=== PATIENT | male | born 1940 | race Caucasian/White ===

== ENCOUNTER 2016-07-01 18:22 | Inpatient (IN) | payer OTHER, MEDICARE ==
[~2016-07-01] VITALS: Ht 180.3 cm; Wt 83.5 kg
[~2016-07-01 18:22] MED LIST: NEXIUM 40MG40 MG PO
--- NOTE | 2016-07-01 18:26 | ED GI/GU/ABDOMINAL COMPLAINT ---
History of Present Illness General Chief Complaint: Abdominal Pain/Flank Pain Stated Complaint: BIBA FOR EPIGASTRIC PAIN Source: patient, EMS Exam Limitations: clinical condition Allergies Coded Allergies: MDX - DT (diphtheria toxoid - tetan (From TETANUS AND DIPHTHERIA TOXOIDS A...) ( Intermediate, [facility] 07/20/14) MDX - QIdu-VbxH-NOK (Pediarix) (From TETANUS AND DIPHTHERIA TOXOIDS A...) ( [facility], [facility] 07/20/14) MDX - DTap-IPV (Kinrix) (From TETANUS AND DIPHTHERIA TOXOIDS A...) (Intermediate , [facility] 07/20/14) MDX - DTap-IPV/Hib (Pentacel) (From TETANUS AND DIPHTHERIA TOXOIDS A...) ( [facility], [facility] 07/20/14) MDX - DTap/Hib (TriHIBit) (From TETANUS AND DIPHTHERIA TOXOIDS A...) ( [facility], [facility] 07/20/14) MDX - Diphtheria Toxoid, Adsorbed (From TETANUS AND DIPHTHERIA TOXOIDS A...) ( [facility], [facility] 07/20/14) MDX - Dtap (Daptacel, Infanrix, Tri (From TETANUS AND DIPHTHERIA TOXOIDS A...) ( [facility], [facility] 07/20/14) MDX - Td (Decavac) (From TETANUS AND DIPHTHERIA TOXOIDS A...) ([facility], [facility] 07/20/14) MDX - Tdap (Boostrix, Adacel) (From TETANUS AND DIPHTHERIA TOXOIDS A...) ( [facility], [facility] 07/20/14) MDX - Tetanus Toxoid (From TETANUS AND DIPHTHERIA TOXOIDS A...) ([facility], [facility] 07/20/14) Reconcile Medications Esomeprazole (Nexium) 40 MG CAPSULE. 1 CAP PO DAILY GERD (Reported) Triage Nurses Notes Reviewed? yes Onset: Abrupt Duration: day(s): (1) Timing: single episode today Quality/Severity: sharpness, severe Severity Numbers: 10 Location: epigastric Radiation: back, BILATERAL UPPER QUADRANTS Activities at Onset: none Prior Abdominal Problems: none No Modifying Factors: none HPI: 76 year old male presents via EMS from home for chief complaint of severe onset in epigastric abdominal pain radiating to both sides and to his back. Positive nausea but no vomiting. Last BM one hour prior to arrival. Pain began sudden in onset. No associated chest pain. Some shortness of breath. No fever or chills. No history of similar symptoms in the past. (CATARINO TOTH MD) Vital Signs & Intake/Output Vital Signs & Intake/Output Vital Signs Date Time Temp Pulse Resp B/P Pulse O2 O2 Flow FiO2 Ox Delivery Rate 07/03 0724 98.8 69 20 120/60 97 Room Air 07/02 2215 97.9 85 20 136/70 95 07/02 1529 98.3 66 18 130/60 95 ED Intake and Output 07/03 0000 07/02 1200 Intake Total 1590 900 Output Total Balance 1590 900 Intake, IV 1300 900 Intake, Oral 290 0 Number 0 Bowel Movements Patient 184 lb Weight Past History Travel History Traveled to [place] past 21 day No Medical History Any Pertinent Medical History? see below for history Gastrointestinal: GERD, HIATAL HERNIA Surgical History Surgical History: non-contributory Psychosocial History What is your primary language Montenegrin Family History Hx Contributory? No (CATARINO TOTH MD) Review of Systems Review of Systems Constitutional: Denies: chills, fever. EENTM: Reports: no symptoms. Respiratory: Denies: cough, short of breath. Cardiovascular: Denies: chest pain. GI: Reports: abdominal pain, nausea. Denies: vomiting. Genitourinary: Reports: no symptoms. Musculoskeletal: Reports: back pain. Skin: Reports: no symptoms. Neurological/Psychological: Reports: no symptoms. Hematologic/Endocrine: Denies: bleeding. Immunologic/Allergic: Denies: splenectomy. All Other Systems: Reviewed and Negative (CATARINO TOTH MD) Physical Exam Physical Exam General Appearance: well developed/nourished, alert, awake, anxious Head: atraumatic, normal appearance Eyes: Bilateral: normal appearance, PERRL, EOMI. Ears, Nose, Throat, Mouth: hearing grossly normal, moist mucous membrane Neck: normal inspection, supple, full range of motion Respiratory: normal breath sounds, chest non-tender, no respiratory distress Cardiovascular: regular rate/rhythm, edema Peripheral Pulses: 2+ radial (R), 2+ radial (L) Gastrointestinal: soft, tenderness (epigastric), NO REBOUND OR GUARDING, POSITIVE VOLUNTARY GUARDING Back: normal inspection, normal range of motion Extremities: normal range of motion Neurologic/Psych: no motor/sensory deficits, awake, alert, oriented x 3 Skin: intact, normal color, warm/dry Core Measures ACS in differential dx? No Severe Sepsis Present: No Septic Shock Present: No (CATARINO TOTH MD) Progress Differential Diagnosis: cholecystitis, gastritis, hepatitis, ischemic bowel, pancreatitis, PUD/GERD, SBO, DISSECTION, PERFORATION, AAA, AMI, HIATAL HERNIA Diagnostic Imaging: Viewed by Me: CT Scan. Discussed w/RAD: CT Scan. Initial ED EKG: NSR Rhythm Strip: normal sinus rhythm Hand-Off Endorsed To: MALINDA WISE MD Endorsed Time: 1901 Pending: CT, labs (CATARINO TOTH MD) Plan of Care: Orders Procedure Date/time Status HEPATIC FUNCTION PANEL 07/04 0600 Active CBC WITHOUT DIFFERENTIAL 07/04 0600 Active BASIC ELECTROLYTES PLUS BUN&CR 07/04 0600 Active Regular Diet 07/03 D Active PATHOLOGY SPECIMEN 07/03 1202 Complete HEPATIC FUNCTION PANEL 07/03 0620 Complete CBC WITHOUT DIFFERENTIAL 07/03 0620 Complete BASIC ELECTROLYTES PLUS BUN&CR 07/03 0620 Complete Current Medications Sig/Angelita Start time Last Medication Dose Stop Time Status Admin Pantoprazole Sodium 40 MG DAILY 07/04 1000 AC (Protonix) Ampicillin Sodium/ 3,000 MG Q6 07/03 1800 AC Sulbactam Sodium 07/04 0028 (Unasyn) Sodium Chloride 100 ML (Normal Saline 0.9%) Heparin Sodium 5,000 UNIT Q8 07/03 1400 AC (Porcine) Morphine Sulfate 2 MG Q3P PRN 07/03 1400 AC (Morphine) Ondansetron HCl 4 MG Q6P PRN 07/03 1400 AC (Zofran) Potassium Chloride 20 MEQ .Q24H 07/03 1400 AC (KCl 20MEQ in D5/ N.S. 1000 ML bag) Dextrose/Sodium 1,000 ML Chloride (D5-Normal Saline) Laboratory Tests 07/03/16 0640: Anion Gap 12, Estimated GFR > 60, BUN/Creatinine Ratio 16.0, Total Bilirubin 2.9 H, Direct Bilirubin 0.5 H, AST 21, ALT 30, Alkaline Phosphatase 37, Total Protein 6.4, Albumin 3.4 L, CBC w Diff NO MAN DIFF REQ, RBC 4.17 L, MCV 91.9, MCH 30.8, RDW 15.4 H, MPV 8.2, Gran % 73.8, Lymphocytes % 14.1 L, Monocytes % 9.6 H, Eosinophils % 2.2, Basophils % 0.3, Absolute Granulocytes 5.4, Absolute Lymphocytes 1.0 L, Absolute Monocytes 0.7 H, Absolute Eosinophils 0.2, Absolute Basophils 0, PUBS MCHC 33.5 07/03/16 0600: Total Bilirubin Cancelled, Direct Bilirubin Cancelled, AST Cancelled, ALT Cancelled, Alkaline Phosphatase Cancelled, Total Protein Cancelled, Albumin Cancelled, CBC w Diff Cancelled, WBC Cancelled, RBC Cancelled, Hgb Cancelled, Hct Cancelled, MCV Cancelled, MCH Cancelled, RDW Cancelled, Plt Count Cancelled, MPV Cancelled, PUBS MCHC Cancelled Radiology Impression: PATIENT: BINH HARVEY PRESENT AGE: 76 PATIENT ACCOUNT NO: [id number] : 42 LOCATION: [facility] ORDERING PHYSICIAN: CATARINO TOTH MD SERVICE DATE: 07/01/16 EXAM TYPE: CAT - CT ABD & PELVIS ANGIOGRAM; CTA CHEST-AORTIC DISSECTION EXAMINATION: CT ANGIOGRAM CHEST, ABDOMEN AND PELVIS CLINICAL INFORMATION: Chest and abdominal pain radiating to the back. COMPARISON: CT chest without contrast 09/12/2012. TECHNIQUE: Multiple axial images were obtained through the abdomen and pelvis following the administration of 95 mL of Optiray 320 intravenous contrast. Images were reviewed on a dedicated 3-D workstation. DLP: 1408 mGy-cm. FINDINGS: VASCULAR: Evaluation of the vasculature demonstrates scattered atherosclerosis of the thoracoabdominal aorta. The thoracoabdominal aorta is otherwise normal in caliber, without aneurysmal dilatation. There are no centrally displaced intraluminal flaps within the thoracoabdominal aorta to suggest aortic dissection. Calcified plaque is identified at the origin of the celiac artery as well as the superior mesenteric artery and inferior mesenteric artery. These vessels are otherwise normal in caliber and are patent and opacified by intravenous contrast. There is no evidence of aneurysm or dissection of the branching vessels of the abdominal aorta including the bilateral renal arteries and bilateral common iliac arteries. NONVASCULAR: CHEST: THYROID: Unremarkable. LUNGS/AIRWAYS: The lungs are well-expanded and clear without focal airspace consolidation. No suspicious pulmonary nodules or masses are identified. There is minimal dependent bibasilar atelectasis. The central airways are patent, without endobronchial obstructing lesions. HEART/VESSELS: The heart is normal in size, without pericardial effusion. There is bovine configuration of the aortic arch, characterized by common origin of the brachiocephalic and left common carotid arteries. The thoracic aorta and main pulmonary artery are normal in caliber. There is adequate contrast opacification of the pulmonary arterial vasculature, without evidence of pulmonary embolism to the level of the subsegmental pulmonary arteries. MEDIASTINUM/LYMPHATICS: There is no significant mediastinal, hilar or axillary adenopathy. PLEURA: No pleural effusions or pneumothoraces. CHEST WALL: Unremarkable. ABDOMEN AND PELVIS: Limited evaluation of the solid abdominal viscera secondary to arterial phase imaging. LIVER, GALLBLADDER, AND BILIARY TREE: The liver is normal in size, shape, and attenuation. No focal hepatic lesion or biliary ductal dilatation is present. There are several subcentimeter stones within the gallbladder lumen, without secondary signs of acute cholecystitis. PANCREAS: Fatty infiltration of the pancreas. No peripancreatic inflammatory changes or fluid collections. SPLEEN: Unremarkable. ADRENAL GLANDS: Unremarkable. KIDNEYS AND URETERS: The kidneys are normal in size and enhance homogeneously, without focal lesions. There is no appreciable nephrolithiasis or hydroureteronephrosis of either kidney or renal collecting system. No ureteral stones are identified. Nonspecific mild bilateral perinephric stranding. This could reflect senescent changes. BLADDER: Unremarkable. GASTROINTESTINAL TRACT: Evaluation of the gastrointestinal system is notable for a moderate hiatal hernia. Normal caliber of abdominal and pelvic bowel loops, without evidence of obstruction or ileus. No circumferential bowel wall thickening with surrounding inflammatory changes to suggest an underlying infectious or inflammatory enterocolitis. Nonvisualization of the appendix. No acute inflammatory changes within the right lower quadrant of the abdomen. Pancolonic diverticulosis, most extensive along the descending and rectosigmoid colon, without secondary signs of acute diverticulitis. No organizing intra- abdominal fluid collections or free intraperitoneal air. ABDOMINAL WALL: Small fat-containing bilateral inguinal hernias. LYMPH NODES: No significant abdominal or pelvic adenopathy. PELVIC VISCERA: Enlarged prostate gland measuring 4.8 x 5.6 cm in AP and transverse dimensions respectively. OSSEOUS STRUCTURES: No acute osseous abnormality. No destructive osseous lesions are identified. IMPRESSION: 1. Normal caliber of the thoracoabdominal aorta without evidence of aneurysmal dilatation. No centrally displaced flaps within the thoracoabdominal aorta or within the branching vessels of the thoracoabdominal aorta to suggest dissection. The branching vessels of the thoracoabdominal aorta are patent and opacified by intravenous contrast. 2. Moderate sized hiatal hernia. 3. Cholelithiasis without secondary signs of acute cholecystitis. 4. Pancolonic diverticulosis, most extensive along the rectosigmoid colon, without secondary signs of acute diverticulitis. DICTATED BY: JOLYNN DOMINGUEZ MD DATE/TIME DICTATED:07/01/161913 SALES FLOOR TEAM LEADER:DAVID DATE/TIME TRANSCRIBED:1913 CONFIDENTIAL, DO NOT COPY WITHOUT APPROPRIATE AUTHORIZATION. < Electronically signed in Other Vendor System> SIGNED BY: JOLYNN DOMINGUEZ MD 07/01/161931 Comments: 07/01/2016 7:36:06 PM patient signed out to me by Dr. Person at shift change management director. 07/01/2016 7:44:02 PM I have updated Binh and his family on test results. He appears uncomfortable again and has epigastric and right upper quadrant abdominal tenderness on exam. Additional morphine has been ordered. Given the presence of gallstones on his CAT scan I will consult the surgical service. 07/01/2016 8:17:28 PM patient's case discussed with Dr. Isaac. 07/01/2016 8:58:24 PM Binh has been evaluated by the surgical PA and his case discussed with Dr. Isaac. According to the PA, the patient's CAT scan was reviewed by Dr. Isaac. At this point the plan is reevaluation in one hour. The patient remains comfortable, he can be followed as an outpatient with repeat LFTs tomorrow. 07/01/2016 10:02:16 PM Binh's pain is beginning to return. I will contact the surgical PA. (FRANDY KLEIN,MALINDA Mathis) Departure Departure Condition: Stable Referrals: JUAN ANTONIO KLEIN,HENRY Chery (PCP/Family) Departure Forms: Customer Survey General Discharge Information (JANEY KLEIN,CATARINO) Departure Disposition: STILL A PATIENT Clinical Impression Primary Impression: Biliary colic Secondary Impressions: Intractable abdominal pain Referred to [facility] as new patient No Admission Note Spoke With: ROSIBEL KLEIN,DAVID N. Documentation of Exam: Documentation of any treatments & extenuating circumstances including Concerns Regarding Discharge (functional status, medication knowledge or non-compliance, living conditions, etc.) that warrant an admission rather than observation: She presents with signs and symptoms consistent with biliary colic. He has gallstones documented on a CAT scan consistent with biliary colic. The patient is requiring multiple doses of IV morphine for adequate pain control. I do not feel that he would be adequately controlled on oral pain relievers and outpatient management. I feel the pain he is experiencing would prevent him from compliance with outpatient treatment plan and he would likely return in severe pain. I feel he now requires hospitalization for management of his pain with IV narcotic pain relievers clear liquid diet and frequent abdominal examinations. Vital signs also be monitored. If the patient continues to experience severe pain or has alterations in his LFTs then surgical intervention and/or GI consultation should be considered. (FRANDY KLEIN,MALINDA Mathis) Critical Care Note Critical Care Note Critical Care Time: 30-74 min (JANEY KLEIN,CATARINO)
[2016-07-01 18:43] LABS: ABSOLUTE BASOPHIL COUNT 0.1 /CUMM (0.0-0.2); ABSOLUTE EOSINOPHIL COUNT 0.2 /CUMM (0.0-0.7); ABSOLUTE GRANULOCYTE CT 4.5 /CUMM (1.4-6.5); ABSOLUTE LYMPH COUNT 1.3 /CUMM (1.2-3.4); ABSOLUTE MONOCYTE COUNT 0.6 /CUMM (0.10-0.60); BASOPHIL % 0.9 % (0.0-2.0); EOSINOPHIL % 2.6 % (0-5); GRANULOCYTE % 68.1 % (42.2-75.2); HEMATOCRIT 41.6 % (42-52); MEAN CORPUSCULAR HGB 30.5 PG (27.0-31.0); MEAN CORPUSCULAR HGB CONC 33.5 G/DL (33.0-37.0); MEAN PLATELET VOLUME 8.7 FL (7.4-10.4); PLATELET COUNT 91 /CUMM (130-400); RBC DISTRIBUTION WIDTH 15.7 % (11.5-14.5); RED BLOOD CELL CT 4.57 /CUMM (4.70-6.10); WHITE BLOOD CELL COUNT 6.6 /CUMM (4.8-10.8)
[2016-07-01 18:52] LABS: PT 12.2 SEC (9.4-12.5); PTT 32 SEC (25-37)
--- NOTE | 2016-07-01 19:32 | CT SCAN REPORT ---
EXAMINATION: CT ANGIOGRAM CHEST, ABDOMEN AND PELVIS CLINICAL INFORMATION: Chest and abdominal pain radiating to the back. COMPARISON: CT chest without contrast 09/12/2012. TECHNIQUE: Multiple axial images were obtained through the abdomen and pelvis following the administration of 95 mL of Optiray 320 intravenous contrast. Images were reviewed on a dedicated 3-D workstation. DLP: 1408 mGy-cm. FINDINGS: VASCULAR: Evaluation of the vasculature demonstrates scattered atherosclerosis of the thoracoabdominal aorta. The thoracoabdominal aorta is otherwise normal in caliber, without aneurysmal dilatation. There are no centrally displaced intraluminal flaps within the thoracoabdominal aorta to suggest aortic dissection. Calcified plaque is identified at the origin of the celiac artery as well as the superior mesenteric artery and inferior mesenteric artery. These vessels are otherwise normal in caliber and are patent and opacified by intravenous contrast. There is no evidence of aneurysm or dissection of the branching vessels of the abdominal aorta including the bilateral renal arteries and bilateral common iliac arteries. NONVASCULAR: CHEST: THYROID: Unremarkable. LUNGS/AIRWAYS: The lungs are well-expanded and clear without focal airspace consolidation. No suspicious pulmonary nodules or masses are identified. There is minimal dependent bibasilar atelectasis. The central airways are patent, without endobronchial obstructing lesions. HEART/VESSELS: The heart is normal in size, without pericardial effusion. There is bovine configuration of the aortic arch, characterized by common origin of the brachiocephalic and left common carotid arteries. The thoracic aorta and main pulmonary artery are normal in caliber. There is adequate contrast opacification of the pulmonary arterial vasculature, without evidence of pulmonary embolism to the level of the subsegmental pulmonary arteries. MEDIASTINUM/LYMPHATICS: There is no significant mediastinal, hilar or axillary adenopathy. PLEURA: No pleural effusions or pneumothoraces. CHEST WALL: Unremarkable. ABDOMEN AND PELVIS: Limited evaluation of the solid abdominal viscera secondary to arterial phase imaging. LIVER, GALLBLADDER, AND BILIARY TREE: The liver is normal in size, shape, and attenuation. No focal hepatic lesion or biliary ductal dilatation is present. There are several subcentimeter stones within the gallbladder lumen, without secondary signs of acute cholecystitis. PANCREAS: Fatty infiltration of the pancreas. No peripancreatic inflammatory changes or fluid collections. SPLEEN: Unremarkable. ADRENAL GLANDS: Unremarkable. KIDNEYS AND URETERS: The kidneys are normal in size and enhance homogeneously, without focal lesions. There is no appreciable nephrolithiasis or hydroureteronephrosis of either kidney or renal collecting system. No ureteral stones are identified. Nonspecific mild bilateral perinephric stranding. This could reflect senescent changes. BLADDER: Unremarkable. GASTROINTESTINAL TRACT: Evaluation of the gastrointestinal system is notable for a moderate hiatal hernia. Normal caliber of abdominal and pelvic bowel loops, without evidence of obstruction or ileus. No circumferential bowel wall thickening with surrounding inflammatory changes to suggest an underlying infectious or inflammatory enterocolitis. Nonvisualization of the appendix. No acute inflammatory changes within the right lower quadrant of the abdomen. Pancolonic diverticulosis, most extensive along the descending and rectosigmoid colon, without secondary signs of acute diverticulitis. No organizing intra-abdominal fluid collections or free intraperitoneal air. ABDOMINAL WALL: Small fat-containing bilateral inguinal hernias. LYMPH NODES: No significant abdominal or pelvic adenopathy. PELVIC VISCERA: Enlarged prostate gland measuring 4.8 x 5.6 cm in AP and transverse dimensions respectively. OSSEOUS STRUCTURES: No acute osseous abnormality. No destructive osseous lesions are identified. IMPRESSION: 1. Normal caliber of the thoracoabdominal aorta without evidence of aneurysmal dilatation. No centrally displaced flaps within the thoracoabdominal aorta or within the branching vessels of the thoracoabdominal aorta to suggest dissection. The branching vessels of the thoracoabdominal aorta are patent and opacified by intravenous contrast. 2. Moderate sized hiatal hernia. 3. Cholelithiasis without secondary signs of acute cholecystitis. 4. Pancolonic diverticulosis, most extensive along the rectosigmoid colon, without secondary signs of acute diverticulitis.
--- NOTE | 2016-07-01 22:14 | Admission Core Measures ---
Admission Lab Results I reviewed the following labs: Laboratory Tests 07/01 07/01 2125 1832 Chemistry Sodium (137 - 145 mmol/L) 141 Potassium (3.5 - 5.1 mmol/L) 3.9 Chloride (98 - 107 mmol/L) 103 Carbon Dioxide (22 - 30 mmol/L) 24 Anion Gap (5 - 16) 13 BUN (9 - 20 mg/dL) 24 H Creatinine (0.7 - 1.2 mg/dL) 1.2 Estimated GFR (>60 ml/min) 59 L BUN/Creatinine Ratio (7 - 25 %) 20.0 Glucose (65 - 99 mg/dL) 112 H Lactic Acid (0.7 - 2.1 mmol/L) Cancelled 1.9 Calcium (8.4 - 10.2 mg/dL) 9.4 Total Bilirubin (0.2 - 1.3 mg/dL) 1.4 H AST (17 - 59 U/L) 33 ALT (21 - 72 U/L) 46 Alkaline Phosphatase (< 127 U/L) 44 Troponin I (<0.11 ng/ml) 0.02 Total Protein (6.3 - 8.2 g/dL) 7.4 Albumin (3.5 - 5.0 g/dL) 4.3 Globulin (1.9 - 4.2 gm/dL) 3.1 Albumin/Globulin Ratio (1.1 - 2.2 %) 1.4 Lipase (23 - 300 U/L) 89 Coagulation PT (9.4 - 12.5 SEC) 12.2 INR (0.90 - 1.17) 1.16 APTT (25 - 37 SEC) 32 Hematology CBC w Diff NO MAN DIFF REQ WBC (4.8 - 10.8 /CUMM) 6.6 RBC (4.70 - 6.10 /CUMM) 4.57 L Hgb (14.0 - 18.0 G/DL) 13.9 L Hct (42 - 52 %) 41.6 L MCV (80.0 - 94.0 FL) 91.0 MCH (27.0 - 31.0 PG) 30.5 RDW (11.5 - 14.5 %) 15.7 H Plt Count (130 - 400 /CUMM) 91 L MPV (7.4 - 10.4 FL) 8.7 Gran % (42.2 - 75.2 %) 68.1 Lymphocytes % (20.5 - 51.1 %) 19.9 L Monocytes % (1.7 - 9.3 %) 8.5 Eosinophils % (0 - 5 %) 2.6 Basophils % (0.0 - 2.0 %) 0.9 Absolute Granulocytes (1.4 - 6.5 /CUMM) 4.5 Absolute Lymphocytes (1.2 - 3.4 /CUMM) 1.3 Absolute Monocytes (0.10 - 0.60 /CUMM) 0.6 Absolute Eosinophils (0.0 - 0.7 /CUMM) 0.2 Absolute Basophils (0.0 - 0.2 /CUMM) 0.1 PUBS MCHC (33.0 - 37.0 G/DL) 33.5 Acute Coronary Syndrome Inclusion Criteria ACS Diagnosis No Inpatient Core Measures LDL Reminder: If No, please order W/I first 24hr of stay Congestive Heart Failure Inclusion Criteria CHF Diagnosis No Cerebrovascular accident Inclusion Criteria CVA/TIA Diagnosis No Inpatient Core Measures Bedside Swallow Eval Reminder: If BSE failed, place ST order Antithrombotic Reminder: Order Antithrombotic Medication by end of day 2 Antithrombotic Reminder: Document Reason Antithrombotic Not ordered by end of day 2 AFIB/Flutter Reminder: If Present, add to problem list AFIB/Flutter Reminder: Order Anticoag Medication for pts with AFIB/Flutter Atherosclerosis Reminder: If Present, add to problem list LDL Reminder: If No, please order W/I first 24hr of stay PT Order Reminder: If No, please order Venous thromboembolism Inpatient Core Measures VTE Risk Factors: Age > 40 VTE Prophylaxis Ordered [facility] prophylaxis d/t No contraindications No VTE Pharm Prophylaxis d/t No contraindications Inclusion Criteria - Per Current guidelines, there needs to be overlap - treatment for the first 5 days of Warfarin therapy. - Parenteral Anticoagulation (IV or SC) needs to be - given along with Warfarin therapy. VTE Diagnosis No VTE Type NONE VTE Confirmed by (Test) NONE Problem List As ranked by this Provider includes Assessment & Plan 1. Cholecystitis HOME MEDS Home Med List Esomeprazole (Nexium) 40 MG CAPSULE. 1 CAP PO DAILY GERD (Reported)
[2016-07-02 00:44] VITALS: BP 142/76
[2016-07-02 06:37] VITALS: BP 126/70
[2016-07-02 07:54] LABS: ABSOLUTE BASOPHIL COUNT 0 /CUMM (0.0-0.2); ABSOLUTE EOSINOPHIL COUNT 0.1 /CUMM (0.0-0.7); ABSOLUTE LYMPH COUNT 0.8 /CUMM (1.2-3.4); ABSOLUTE MONOCYTE COUNT 0.9 /CUMM (0.10-0.60); BASOPHIL % 0.2 % (0.0-2.0); EOSINOPHIL % 0.8 % (0-5); GRANULOCYTE % 79.9 % (42.2-75.2); HEMATOCRIT 41.3 % (42-52); MEAN CORPUSCULAR HGB 30.9 PG (27.0-31.0); MEAN PLATELET VOLUME 8.8 FL (7.4-10.4); RBC DISTRIBUTION WIDTH 15.7 % (11.5-14.5); RED BLOOD CELL CT 4.55 /CUMM (4.70-6.10); WHITE BLOOD CELL COUNT 8.8 /CUMM (4.8-10.8)
--- NOTE | 2016-07-02 08:41 | PN- General Surgery ---
Subjective Subjective: Patient reporting improvement in discomfort overnight, only required one dose of pain medication and feels pain did not return. Denies chest pain, shortness of breath and difficulty breathing. Denies nausea and vomitting. Denies belching or hiccupping. Denies bowel movement, acknowledges small amount of flatus. Is voiding spontaneously but notices slower stream. Objective Vital Signs and I&Os Vital Signs Date Time Temp Pulse Resp B/P Pulse O2 O2 Flow FiO2 Ox Delivery Rate 07/02 0637 98.5 81 20 126/70 98 Room Air 07/02 0044 98.0 61 20 142/76 98 Room Air 07/02 0015 95.9 55 20 159/77 99 Room Air 07/01 2159 97.0 57 18 176/84 99 Room Air 07/01 2009 96.7 57 20 158/72 100 Nasal 2.0L Cannula 07/01 1857 97 07/01 185 96.8 52 22 174/92 97 Room Air Intake & Output 07/02 1600 07/02 0800 07/02 0000 07/01 1600 07/01 0807/01 0000 Intake Total 900 0 Output Total Balance 900 0 Intake, IV 900 Intake, Oral 0 0 Patient 184 lb 184 lb Weight Physical Exam: General: Alert and oreinted x3, no acute distress Cardiac: RRR, s1s2 Pulmonary: Bilateral lung sounds clear to auscultation Abdomen: Soft, mild distension. Non-tender with deep palpation in all 4 quadrants. No guarding or rebound tenderness, +bs Extremities: Moves all extremities, distal sensations intact. DP pulses palp, bilateral calves soft and non-tender. Assessment/Plan Assessment/Plan This is a 76 year old male, hospital day 1 with cholelithiasis without evidence of acute cholecystitis -F/U am labs, assess lfts -Consider ERCP/MRCP if increasing lfts -Keep npo for now -Will d/w Dr. Isaac, consider d/c if asymptomatic Core Measures/Miscellaneous Venous Thromboembolism VTE Risk Factors: Age > 40 VTE Contraindications: No Contraindications VTE Prophylaxis Ordered Inpt Mech & Pharm VTE Diagnosis: No VTE Type: NONE VTE Confirmed by (Test): NONE Beta Jorge Is Beta Jorge a Home Med? No Antibiotics Is Patient on Antibiotics? Yes If Yes: infection
[2016-07-02 08:43] LABS: PLATELET COUNT 81 /CUMM (130-400)
--- NOTE | 2016-07-02 10:09 | ULTRASOUND REPORT ---
EXAMINATION: US ABDOMEN LIMITED CLINICAL INFORMATION: Abdominal pain. COMPARISON: None TECHNIQUE: Real-time imaging of the right upper quadrant abdominal viscera. FINDINGS: PANCREAS: Normal. LIVER: Normal. The liver demonstrates normal size, contour and echogenicity. No focal lesion or intrahepatic biliary duct dilatation. GALLBLADDER: There is a 1.8 cm calculus within the gallbladder lumen. There is no gallbladder wall thickening or pericholecystic fluid. COMMON BILE DUCT: Normal in caliber measuring 0.8 cm in diameter. RIGHT KIDNEY: Normal. No hydronephrosis. No renal calculi or focal parenchymal lesions. The kidney measures 12.1 cm in maximum dimension. FREE FLUID: None. IMPRESSION: Cholelithiasis without evidence of cholecystitis.
[2016-07-02 15:29] VITALS: BP 130/60
[2016-07-02 22:15] VITALS: BP 136/70
--- NOTE | 2016-07-02 22:45 | History & Physical Pre-Op ---
See Addendum General Information and HPI MD Statement: I have seen and personally examined CARMELO HARVEY and documented this H&P. The patient is a 76 year old M who presented with a patient stated chief complaint of []. History of Present Illness: CC: abdominal pain HPI: 76-year-old nondiabetic nonsmoker came to the ER yesterday afternoon with severe midepigastric pain constantly couldn't get comfortable it wasn't worse on one side or the other seemed to radiate both sides around to the back earlier that day he had a hall egg and cheese sandwich and then some Nixon leftovers. He did get nauseous once no vomiting no fevers no sweats no diarrhea no particular darkening of urine (ie iced tea) or lightening / loose stools ( vasquez), no FHx of gallbladder problems, but his daughter says she had very similar symptoms once. After some morphine he felt better and while in the ER we planned to let him go home but after the morphine wore off the pain returned. Otherwise no changes bowel habits, weight or appetite. I've reviewed the [facility]. No history of GERD, PUD, heart disease or issues with anesthesia. of note he is a recovering alcoholic hasn't had alcohol or cigarettes in over 30 years. 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 past surgical history no prior abdominal surgery, family history negative for diabetes or cancer. Allergies/Medications Allergies: Coded Allergies: MDX - DT (diphtheria toxoid - tetan (From TETANUS AND DIPHTHERIA TOXOIDS A...) ( Intermediate, HIVES 07/20/14) MDX - EKug-QuyK-PEP (Pediarix) (From TETANUS AND DIPHTHERIA TOXOIDS A...) ( Intermediate, HIVES 07/20/14) MDX - DTap-IPV (Kinrix) (From TETANUS AND DIPHTHERIA TOXOIDS A...) (Intermediate , HIV07/20/14) MDX - DTap-IPV/Hib (Pentacel) (From TETANUS AND DIPHTHERIA TOXOIDS A...) ( Intermediate, HIVES 07/20/14) MDX - DTap/Hib (TriHIBit) (From TETANUS AND DIPHTHERIA TOXOIDS A...) ( Intermediate, HIVES 07/20/14) MDX - Diphtheria Toxoid, Adsorbed (From TETANUS AND DIPHTHERIA TOXOIDS A...) ( Intermediate, [facility] 07/20/14) MDX - Dtap (Daptacel, Infanrix, Tri (From TETANUS AND DIPHTHERIA TOXOIDS A...) ( Intermediate, [facility] 07/20/14) MDX - Td (Decavac) (From TETANUS AND DIPHTHERIA TOXOIDS A...) (Intermediate, [facility] 07/20/14) MDX - Tdap (Boostrix, Adacel) (From TETANUS AND DIPHTHERIA TOXOIDS A...) ( Intermediate, [facility] 07/20/14) MDX - Tetanus Toxoid (From TETANUS AND DIPHTHERIA TOXOIDS A...) (Intermediate, [facility] 07/20/14) Home Med list Esomeprazole (Nexium) 40 MG CAPSULE. 1 CAP PO DAILY GERD (Reported) Past History Medical History Cardiovascular: hyperlipidemia Gastrointestinal: GERD, HIATAL HERNIA Blood Disorders: TRISOMIA 8 Cancer(s): leukemia History of MRSA: No History of VRE: No History of CDIFF: No Isolation History: Standard Pneumonia Vaccine: 07/02/16 Influenza Vaccine: 05/01/16 Surgical History Pertinent Surgical History: none Past Family/Social History Psychosocial History Where Do You Live? Home Services at Home None Smoking Status: Former Smoker ETOH Use: denies use Illicit Drug Use: denies illicit drug use Review of Systems Review of Systems: Constitutional: No fever, sweats or weight loss ENMT: No sore throat Cardiovascular: No chest pain, palpitations or leg swelling Respiratory: No shortness of breath, cough, or sputum or dyspnea on exertion GI: No GERD or bleeding per rectum : No dysuria or hematuria Musculoskeletal: No new muscle weakness, bone or joint pain Skin / Breast: No jaundice, rashes or itching Psychiatric: No history of drug or alcohol abuse no depression or anxiety Hematologic / lymphatic system: No problems with excessive bleeding, bruising, or blood clots Exam & Diagnostic Data Last 24 Hrs of Vital Signs/I&O I reviewed Vital Signs Date Time Temp Pulse Resp B/P Pulse O2 O2 Flow FiO2 Ox Delivery Rate 07/02 2215 97.9 85 20 136/70 95 07/02 1529 98.3 66 18 130/60 95 07/02 1030 98.5 07/02 0637 98.5 81 20 126/70 98 Room Air 07/02 0044 98.0 61 20 142/76 98 Room Air 07/02 0015 95.9 55 20 159/77 99 Room Air I reviewed Intake & Output 07/02 1600 07/02 0800 07/02 0000 Intake Total 850 900 0 Output Total Balance 850 900 0 Intake, IV 800 900 Intake, Oral 50 0 0 Number 0 Bowel Movements Patient 184 lb 184 lb Weight Physical Exam: Constitutional: pleasant, no acute distress, conversant Eyes: sclera anicteric ENMT: ears and nose atraumatic, moist mucous membranes, good dentition, no lip lesions Neck: Supple, trachea is midline, no cervical or supraclavicular adenopathy and no palpable thyromegaly Cardiovascular: S1, S2, no murmurs, no peripheral edema Respiratory: clear to auscultation with normal respiratory effort and no intercostal retractions GI: abdomen soft, nontender but he says that last night you couldn't touch him in the mid upper abdomen, nondistended, no palpable hepatosplenomegaly Extremities / lymphatics: symmetrically warm, free range of motion no peripheral edema, no cervical, supraclavicular, axillary, or inguinal adenopathy Musculoskeletal: Normal gait and station, no digital cyanosis, good muscle strength and tone no atrophy, motor grossly 5 out of 5 throughout Skin: no jaundice, no rashes warm, nondiaphoretic, no areas of erythema or induration Psychiatric: mood and affect are appropriate and alert and oriented to person place and time Last 24 Hrs of Labs/Guillermo: I reviewed Laboratory Tests 07/02/16 0635: Anion Gap 15, Estimated GFR > 60, BUN/Creatinine Ratio 24.0, Total Bilirubin 1.9 H, Direct Bilirubin 0.5 H, AST 27, ALT 43, Alkaline Phosphatase 40, Total Protein 7.0, Albumin 4.1, CBC w Diff NO MAN DIFF REQ, RBC 4.55 L, MCV 91.0, MCH 30.9, RDW 15.7 H, MPV 8.8, Gran % 79.9 H, Lymphocytes % 8.9 L, Monocytes % 10.2 H, Eosinophils % 0.8, Basophils % 0.2, Absolute Granulocytes 7.0 H, Absolute Lymphocytes 0.8 L, Absolute Monocytes 0.9 H, Absolute Eosinophils 0.1 , Absolute Basophils 0, PUBS MCHC 34.0 In the ER bilirubin was 1.4 Assessment/Plan Assessment/Plan: My impression is symptomatic gallstones. The story is typical. The current standard of care is removal of the gallbladder laparoscopically, preferably not emergently. Once they become symptomatic, gallstones can lead to complications such as cholecystitis, pancreatitis and cholangitis and rarely others, his story does have hints of this in that the pain initially was in the mid epigastrium and now it's completely gone overnight without recent analgesics. The LFTs are normal except for the bilirubin being mildly elevated and then increased. He probably does not have acute cholecystitis, but I'm concerned about choledocholithiasis. So the plan is since his plan is to give him clear liquids today keep him npo post midnight get LFTs in the morning if they go up then he needs an MR or ER-CP if they normalize, we'll proceed with laparoscopic cholecystectomy. I explained the nature and possibility of retained stones, and rarely, persistent postoperative diarrhea. I domenico a diagram illustrating how the stones cause problems and how the anatomy and inflammation can make the surgery more difficult, sometimes requiring an open procedure, and rarely to repair a bile duct injury leading to significant morbidity and even mortality. This in our practice is exceedingly rare, but other more common risks were also discussed such as infection, injury to other surrounding structures such as bowel and blood vessels. We also discussed the potential risks, benefits and alternatives to the procedure and surgery in general, issues that included but were not limited to, anesthetic risks hemorrhage requiring transfusion, the risk of transfusion itself, infection, heart attack, stroke, . As Ranked By This Provider Problem List: 1. Hyperbilirubinemia
[2016-07-03 07:05] LABS: ABSOLUTE BASOPHIL COUNT 0 /CUMM (0.0-0.2); ABSOLUTE EOSINOPHIL COUNT 0.2 /CUMM (0.0-0.7); ABSOLUTE GRANULOCYTE CT 5.4 /CUMM (1.4-6.5); ABSOLUTE MONOCYTE COUNT 0.7 /CUMM (0.10-0.60); BASOPHIL % 0.3 % (0.0-2.0); EOSINOPHIL % 2.2 % (0-5); GRANULOCYTE % 73.8 % (42.2-75.2); HEMATOCRIT 38.3 % (42-52); MEAN CORPUSCULAR HGB 30.8 PG (27.0-31.0); MEAN CORPUSCULAR HGB CONC 33.5 G/DL (33.0-37.0); MEAN CORPUSCULAR VOLUME 91.9 FL (80.0-94.0); MEAN PLATELET VOLUME 8.2 FL (7.4-10.4); RBC DISTRIBUTION WIDTH 15.4 % (11.5-14.5); RED BLOOD CELL CT 4.17 /CUMM (4.70-6.10); WHITE BLOOD CELL COUNT 7.3 /CUMM (4.8-10.8)
[2016-07-03 07:06] LABS: PLATELET COUNT 73 /CUMM (130-400)
--- NOTE | 2016-07-03 07:14 | PN- General Surgery ---
Subjective Subjective: NAEO. Patient without new c/o. No pain overnight and did not require pain meds. Tolerated clears until NPO after midnight. +flatus, no BM. Voiding spontaneously. OOB and ambulating. Denies CP/SOB. Objective Vital Signs and I&Os Vital Signs Date Time Temp Pulse Resp B/P Pulse O2 O2 Flow FiO2 Ox Delivery Rate 07/03 0724 98.8 69 20 120/60 97 Room Air 07/02 221 97.9 85 20 136/70 95 07/02 1529 98.3 66 18 130/60 95 07/02 1030 98.5 Intake & Output 07/03 0800 07/03 0000 07/02 1600 07/02 0800 07/02 0000 07/01 1600 Intake Total 740 850 900 0 Output Total 325 Balance -325 740 850 900 0 Intake, IV 500 800 900 Intake, Oral 240 50 0 0 Number 0 Bowel Movements Output, Urine 325 Patient 184 lb 184 lb Weight Physical Exam: General: NAD, comfortable, A&Ox3 Chest: CTAB, no wheezes, no rales. Heart S1S2 normal. Abdomen: soft, nontender, nondistended. +Bowel sounds x4 quadrants Ext: No calve swelling/TTP, neurovascularly intact bilateral lower extremities Current Medications: Current Medications Sig/Angelita Start time Last Medication Dose Route Stop Time Status Admin Ampicillin Sodium/ 3,000 MG Q6 07/01 2359 07/03 Sulbactam Sodium IV 0522 Sodium Chloride 100 ML Heparin Sodium 5,000 UNIT Q8 07/02 0600 AC 07/03 (Porcine) SC 0522 Morphine Sulfate 2 MG Q3P PRN 07/01 2230 AC 07/02 IV 0046 Ondansetron HCl 4 MG Q6P PRN 07/01 2215 IV Pantoprazole Sodium 40 MG DAILY 07/02 1000 AC 07/02 IV 1026 Patient Medication 1 ED .STK-MED ONE 07/02 1405 DC Teaching ED 07/02 1406 Pneumococcal 0.5 ML 1000 07/02 1000 DC 07/02 Polyvalent Vaccine IM 07/02 1001 1030 Potassium Chloride 20 MEQ .Q24H 07/01 2215 AC 07/02 Dextrose/Sodium 1,000 ML IV 1026 Chloride Results Last 48 Hours of Labs: Laboratory Tests 07/03 07/03 0640 0600 Chemistry Sodium (137 - 145 mmol/L) 138 Potassium (3.5 - 5.1 mmol/L) 4.0 Chloride (98 - 107 mmol/L) 102 Carbon Dioxide (22 - 30 mmol/L) 24 Anion Gap (5 - 16) 12 BUN (9 - 20 mg/dL) 16 Creatinine (0.7 - 1.2 mg/dL) 1.0 Estimated GFR (>60 ml/min) > 60 BUN/Creatinine Ratio (7 - 25 %) 16.0 Total Bilirubin (0.2 - 1.3 mg/dL) 2.9 H Cancelled Direct Bilirubin (< 0.4 mg/dL) 0.5 H Cancelled AST (17 - 59 U/L) 21 Cancelled ALT (21 - 72 U/L) 30 Cancelled Alkaline Phosphatase (< 127 U/L) 37 Cancelled Total Protein (6.3 - 8.2 g/dL) 6.4 Cancelled Albumin (3.5 - 5.0 g/dL) 3.4 L Cancelled Hematology CBC w Diff NO MAN DIFF REQ Cancelled WBC (4.8 - 10.8 /CUMM) 7.3 Cancelled RBC (4.70 - 6.10 /CUMM) 4.17 L Cancelled Hgb (14.0 - 18.0 G/DL) 12.8 L Cancelled Hct (42 - 52 %) 38.3 L Cancelled MCV (80.0 - 94.0 FL) 91.9 Cancelled MCH (27.0 - 31.0 PG) 30.8 Cancelled RDW (11.5 - 14.5 %) 15.4 H Cancelled Plt Count (130 - 400 /CUMM) 73 L Cancelled MPV (7.4 - 10.4 FL) 8.2 Cancelled Gran % (42.2 - 75.2 %) 73.8 Lymphocytes % (20.5 - 51.1 %) 14.1 L Monocytes % (1.7 - 9.3 %) 9.6 H Eosinophils % (0 - 5 %) 2.2 Basophils % (0.0 - 2.0 %) 0.3 Absolute Granulocytes (1.4 - 6.5 /CUMM) 5.4 Absolute Lymphocytes (1.2 - 3.4 /CUMM) 1.0 L Absolute Monocytes (0.10 - 0.60 /CUMM) 0.7 H Absolute Eosinophils (0.0 - 0.7 /CUMM) 0.2 Absolute Basophils (0.0 - 0.2 /CUMM) 0 PUBS MCHC (33.0 - 37.0 G/DL) 33.5 Cancelled 07/02 07/01 0667 9368 Chemistry Sodium (137 - 145 mmol/L) 138 Potassium (3.5 - 5.1 mmol/L) 4.3 Chloride (98 - 107 mmol/L) 100 Carbon Dioxide (22 - 30 mmol/L) 23 Anion Gap (5 - 16) 15 BUN (9 - 20 mg/dL) 24 H Creatinine (0.7 - 1.2 mg/dL) 1.0 Estimated GFR (>60 ml/min) > 60 BUN/Creatinine Ratio (7 - 25 %) 24.0 Lactic Acid Cancelled Total Bilirubin (0.2 - 1.3 mg/dL) 1.9 H Direct Bilirubin (< 0.4 mg/dL) 0.5 H AST (17 - 59 U/L) 27 ALT (21 - 72 U/L) 43 Alkaline Phosphatase (< 127 U/L) 40 Total Protein (6.3 - 8.2 g/dL) 7.0 Albumin (3.5 - 5.0 g/dL) 4.1 Hematology CBC w Diff NO MAN DIFF REQ WBC (4.8 - 10.8 /CUMM) 8.8 RBC (4.70 - 6.10 /CUMM) 4.55 L Hgb (14.0 - 18.0 G/DL) 14.0 Hct (42 - 52 %) 41.3 L MCV (80.0 - 94.0 FL) 91.0 MCH (27.0 - 31.0 PG) 30.9 RDW (11.5 - 14.5 %) 15.7 H Plt Count (130 - 400 /CUMM) 81 L MPV (7.4 - 10.4 FL) 8.8 Gran % (42.2 - 75.2 %) 79.9 H Lymphocytes % (20.5 - 51.1 %) 8.9 L Monocytes % (1.7 - 9.3 %) 10.2 H Eosinophils % (0 - 5 %) 0.8 Basophils % (0.0 - 2.0 %) 0.2 Absolute Granulocytes (1.4 - 6.5 /CUMM) 7.0 H Absolute Lymphocytes (1.2 - 3.4 /CUMM) 0.8 L Absolute Monocytes (0.10 - 0.60 /CUMM) 0.9 H Absolute Eosinophils (0.0 - 0.7 /CUMM) 0.1 Absolute Basophils (0.0 - 0.2 /CUMM) 0 PUBS MCHC (33.0 - 37.0 G/DL) 34.0 07/01 1832 Chemistry Sodium (137 - 145 mmol/L) 141 Potassium (3.5 - 5.1 mmol/L) 3.9 Chloride (98 - 107 mmol/L) 103 Carbon Dioxide (22 - 30 mmol/L) 24 Anion Gap (5 - 16) 13 BUN (9 - 20 mg/dL) 24 H Creatinine (0.7 - 1.2 mg/dL) 1.2 Estimated GFR (>60 ml/min) 59 L BUN/Creatinine Ratio (7 - 25 %) 20.0 Glucose (65 - 99 mg/dL) 112 H Lactic Acid (0.7 - 2.1 mmol/L) 1.9 Calcium (8.4 - 10.2 mg/dL) 9.4 Total Bilirubin (0.2 - 1.3 mg/dL) 1.4 H AST (17 - 59 U/L) 33 ALT (21 - 72 U/L) 46 Alkaline Phosphatase (< 127 U/L) 44 Troponin I (<0.11 ng/ml) 0.02 Total Protein (6.3 - 8.2 g/dL) 7.4 Albumin (3.5 - 5.0 g/dL) 4.3 Globulin (1.9 - 4.2 gm/dL) 3.1 Albumin/Globulin Ratio (1.1 - 2.2 %) 1.4 Lipase (23 - 300 U/L) 89 Coagulation PT (9.4 - 12.5 SEC) 12.2 INR (0.90 - 1.17) 1.16 APTT (25 - 37 SEC) 32 Hematology CBC w Diff NO MAN DIFF REQ WBC (4.8 - 10.8 /CUMM) 6.6 RBC (4.70 - 6.10 /CUMM) 4.57 L Hgb (14.0 - 18.0 G/DL) 13.9 L Hct (42 - 52 %) 41.6 L MCV (80.0 - 94.0 FL) 91.0 MCH (27.0 - 31.0 PG) 30.5 RDW (11.5 - 14.5 %) 15.7 H Plt Count (130 - 400 /CUMM) 91 L MPV (7.4 - 10.4 FL) 8.7 Gran % (42.2 - 75.2 %) 68.1 Lymphocytes % (20.5 - 51.1 %) 19.9 L Monocytes % (1.7 - 9.3 %) 8.5 Eosinophils % (0 - 5 %) 2.6 Basophils % (0.0 - 2.0 %) 0.9 Absolute Granulocytes (1.4 - 6.5 /CUMM) 4.5 Absolute Lymphocytes (1.2 - 3.4 /CUMM) 1.3 Absolute Monocytes (0.10 - 0.60 /CUMM) 0.6 Absolute Eosinophils (0.0 - 0.7 /CUMM) 0.2 Absolute Basophils (0.0 - 0.2 /CUMM) 0.1 PUBS MCHC (33.0 - 37.0 G/DL) 33.5 Assessment/Plan Assessment/Plan 76yo M with cholelithiasis, possible choledocolithiasis. Bilirubin with slight increase from yesterday, no other LFT's elevated. Asymptomatic at this point of time. NPO for anticipation of OR. - Pain control PRN - IVF - NPO - SC heparin and ALPS for DVT PPX - I/O's - OOB and ambulate - will discuss plan with attending for OR vs ERCP. MRI not available today for MRCP Core Measures/Miscellaneous Venous Thromboembolism VTE Risk Factors: Age > 40 VTE Contraindications: No Contraindications VTE Prophylaxis Ordered Inpt Mech & Pharm VTE Diagnosis: No VTE Type: NONE VTE Confirmed by (Test): NONE Beta Jorge Is Beta Jorge a Home Med? No Antibiotics Is Patient on Antibiotics? Yes If Yes: infection
[2016-07-03 07:24] VITALS: BP 120/60
--- NOTE | 2016-07-03 11:20 | Operative Report ---
See Addendum Operative/Inv Procedure Report Surgery Date: 07/03/16 Name of Procedure: Preperitoneal laparoscopic repair of left inguinal hernia Pre-Operative Diagnosis: Left inguinal hernia Post-Operative Diagnosis: Same, indirect Estimated Blood Loss: scant Surgeon/Client Support Representative: ROSIBEL KLEIN,DAVID PIERCE Anesthesia: general endotracheal tube Operative/Procedure Note Note: Patient was positioned supine on the table. After successful induction of general anesthesia the inguinal and surrounding areas were clipped prepped and draped in the usual sterile fashion. After injection of local anesthetic at the bottom of the umbilicus off the midlineto the left, a 1 1/2 cm curved incision was made with a 15 blade, then deepened through Aurora's fascia, sweeping off the rectus sheath. A horizontal 1-1/2 cm incision was made between the fibers, elevating these edges with 0 Vicryl stay sutures. Then retracting the muscle laterally, clearing off the posterior rectus sheath, this space is developed down the midline to the pubis sequentially, with an S retractor, a peanut dissector, then the balloon-camera device, inflating it 30-40 pumps while watching how it opens up the space, keeping the epigastrics up. The balloon is then replaced with a 10 mm Clifford trocar, inserted, shortened, and secured with the stay sutures, gas turned on to 12 not 15 mm. Then two 5 mm trochars are inserted in the midline just below the camera, spaced by approximately 3 cm. Using mostly blunt dissection with peanuts to define the anatomy, first Ephraim's ligament is swept off medially, checking the medial spaces, direct and femoral. There were no hernias there. Then briefly skipping over the area of the iliac fat pad, we developed the iliopubic tract out laterally to the iliac crest. Then we returned to the area of the fat pad where the hernia sac and the cord structures are adherent, coursing up into an attenuated deep ring. The cord structures form a triangle with the vas approaching medially and the main vessels approaching laterally, with the apex at the deep ring. There was some preperitoneal fat up inside in front that was dragged down and out, helping identify the distal lip of the hernia sac, which is then carefully peeled off the cord structures, especially the vas. The cord is also from the underlying iliac fat. Once the hernia sac is from the cord structures down to the base of this "triangle," a Parietex sided mesh with the suture, is marked and stuffed down the camera trocar, then unfurled in a systematic fashion , first with the smaller leaflet passing behind the cord structures, until the flap covers the epigastrics, covering the deep ring, then the larger leaflet is released from the suture, double-covering the smaller one, but also extends laterally out to the iliac crest, medially over Ephraim's ligament, and superiorly towards the camera. There is a third part of the mesh, that covers the iliac fat pad like a skirt. The mesh was adjusted back and forth so that the keyhole is centered around the cord, lays flat and the edges are not curling. A trial run of letting the gas escape a little bit to see how the mesh would lay as the peritoneum comes back down is done, then when we're satisfied, we let rest of the gas escape, pulling out the instruments and trochars. The fascia is closed with a [id number] 0 Vicryl suture, tying the stay sutures on top. Then we closed the 3 skin incisions with interrupted 4-0 Monocryl, 3 for the umbilical, one each for the smaller ones, followed by Mastisol, Steri-Strips and Band-Aids. Overall estimated blood loss was minimal, lap and sponge counts were correct, wound expectancy was clean, IV fluids crystalloid, complications none, patient tolerated the procedure well, did not significantly hoffman during extubation and was returned to the recovery room in satisfactory condition.
[2016-07-03] MEDS ORDERED: PERCOCET 5-3251 EACH PO (14:08)
--- NOTE | 2016-07-03 14:13 | Patient Discharge Instructions ---
Discharge Instructions General Discharge Information You were seen/treated for: Acute cholecystitis You had these procedures: 07/03/16 Laparoscopic cholecystectomy Watch for these problems: Redness, swelling, purulent drainage, fever, signs of infection. Excessive bleeding. Uncontrolled pain. Inability to tolerate diet. Chest pain. Shortness of breath. Do not soak the wound: Yes No bath, but you may shower: Yes Other wound care: Leave steri strips in place for 7-10 days. Diet Continue normal diet: Yes Activity Full Activity/No Limits: No Pounds, do NOT lift more than: 15 Other activity limits: No strenuous activity and/or exercise. Acute Coronary Syndrome Inclusion Criteria At DC or during hospital stay patient has or had the following: ACS DIAGNOSIS No Discharge Core Measures Meds if any: Prescribed or Continued at Discharge Meds if any: NOT Prescribed or Continued at Discharge Congestive Heart Failure Inclusion Criteria At DC or during hospital stay patient has or had the following: CHF DIAGNOSIS No Discharge Core Measures Meds if any: Prescribed or Continued at Discharge Meds if any: NOT Prescribed or Continued at Discharge Cerebrovascular accident Inclusion Criteria At DC or during hospital stay patient has or had the following: CVA/TIA Diagnosis No Discharge Core Measures Meds if any: Prescribed or Continued at Discharge Meds if any: NOT Prescribed or Continued at Discharge Venous thromboembolism Inclusion Criteria VTE Diagnosis No VTE Type NONE VTE Confirmed by (Test) NONE Discharge Core Measures - Per Current guidelines, there needs to be overlap - treatment for the first 5 days of Warfarin therapy. - If discharged on Warfarin prior to 5 days of - overlap therapy, the patient will need to be - assessed for post discharge needs including - *Post discharge parental anticoagulation - *Warfarin and/or parental anticoagulation education - *Follow up date to check INR post discharge At least 5 days overlap therapy as Inpatient No Meds if any: Prescribed or Continued at Discharge Note: Overlap Therapy is Warfarin and Anticoagulant Meds if any: NOT Prescribed or Continued at Discharge
--- NOTE | 2016-07-03 14:17 | Operative Report ---
Operative/Inv Procedure Report Surgery Date: 07/03/16 Name of Procedure: Laparoscopic cholecystectomy Pre-Operative Diagnosis: Choledocholithiasis, cholecystitis Post-Operative Diagnosis: Same, acute gangrenous Estimated Blood Loss: scant Surgeon/Pallet Rectifier: ROSIBEL KLEIN,DAVID PIERCE Anesthesia: general endotracheal tube Operative/Procedure Note Note: Patient was positioned supine. After successful induction of general anesthesia, the patient's abdomen was clipped, prepped and draped in the usual sterile fashion. Local anesthetic was injected at the top of the umbilicus and then a curved horizontal incision little over a centimeter was made there with a 15 blade and then deepened to the midline fascia which was incised vertically a little over a centimeter. Both sides were secured with 0 Vicryl stay sutures and then the thin peritoneal layer was entered, 10 mm Clfiford trocar inserted obliquely to the right, and the gas was turned on to 15 mm. After insufflation and repositioning to reverse Trendelenburg, 3 more dissecting 5 mm trochars were placed in the right subcostal area, first lateral, then mid-subcostal, then subxiphoid. The gallbladder was distended and gangrenous with spots, after we decompressed it with a large-bore needle,the fundus was grasped from the lateral port and retracted up over the edge of the liver and then we dissected out the area of the triangle of Calot while retracting the infundibulum caudally / laterally. It took time and dissection to actually get to the infundibulum there were adhesions both acute and chronic in this area including some between the omentum and the liver. First the cystic duct was identified, it was thick and tortuous, isolated at the neck, clipped 3 times, divided after the second clip and then in similar fashion the cystic artery was identified medially, dissected and divided. This anterior branch was small and flimsy there was a larger dominant posterior branch which we did Identify controlled with clips. Of note the common duct was involved in this inflamed area and was very noticeable during the dissection perhaps this patient had a Mirrizzi's as evidenced by the isolated elevated bilirubin. Then the gallbladder was from the liver bed using cautery then lowered into an Endobag and removed through the umbilical incision, after having to enlarge it by a few millimeters. The instruments and then the trochars were removed letting the gas escape. The fascial incision was closed with a figure 8 and an additional interrupted, 0- Vicryl then all 4 skin incisions were closed with interrupted subcuticular 4-0 Monocryl, followed by Mastisol Steri-Strips and Bandaids. Estimated blood loss was minimal, lap and sponge counts were correct, wound expectancy was clean- contaminated, IV fluids crystalloid, complications none, patient tolerated the procedure well and was returned to the recovery room in satisfactory condition.
[2016-07-03 16:00] VITALS: BP 130/68
--- NOTE | 2016-07-03 17:35 | PN- General Surgery ---
Subjective Subjective: Post Op Note s/p laparoscopic cholecystectomy Patient without c/o. States he has no pain at this time. Tolerating water without n/v. Has not been OOB. Denies CP/SOB. Objective Vital Signs and I&Os Vital Signs Date Time Temp Pulse Resp B/P Pulse O2 O2 Flow FiO2 Ox Delivery Rate 07/03 723 98.8 69 20 120/60 97 Room Air 07/02 2214 97.9 85 20 136/70 95 Intake & Output 07/03 1600 07/03 0807/03 0000 07/02 1600 07/02 0807/02 0000 Intake Total 120 400 740 850 900 0 Output Total 700 Balance 120 -300 740 850 900 0 Intake, IV 120 400 500 800 900 Intake, Oral 0 240 50 0 0 Number 0 Bowel Movements Output, Urine 700 Patient 184 lb 184 lb Weight Physical Exam: Gen: NAD, comfortable, A&Ox3 Chest: CTAB, RRR Abd: Soft, non-distended. Appropriately TTP. Incisions c/d/i. Ext: No calve TTP/Swelling. NV intact BLE. Current Medications: Current Medications Sig/Angelita Start time Last Medication Dose Route Stop Time Status Admin Ampicillin Sodium/ 3,000 MG Q6 07/03 1800 AC Sulbactam Sodium IV 07/04 0028 Sodium Chloride 100 ML Ampicillin Sodium/ 3,000 MG Q6 07/01 2359 DC 07/03 Sulbactam Sodium IV 0522 Sodium Chloride 100 ML Heparin Sodium 5,000 UNIT Q8 07/03 1400 AC (Porcine) SC Heparin Sodium 5,000 UNIT Q8 07/02 0600 DC 07/03 (Porcine) SC 0522 Morphine Sulfate 2 MG Q3P PRN 07/03 1400 AC IV Morphine Sulfate 2 MG Q3P PRN 07/01 2230 DC 07/02 IV 0046 Ondansetron HCl 4 MG Q6P PRN 07/03 1400 AC IV Ondansetron HCl 4 MG Q6P PRN 07/01 2215 DC IV Pantoprazole Sodium 40 MG DAILY 07/04 1000 AC IV Pantoprazole Sodium 40 MG DAILY 07/02 1000 DC 07/02 IV 1026 Potassium Chloride 20 MEQ .Q24H 07/03 1400 AC Dextrose/Sodium 1,000 ML IV Chloride Potassium Chloride 20 MEQ .Q24H 07/01 2215 DC 07/02 Dextrose/Sodium 1,000 ML IV 1026 Chloride Results Last 48 Hours of Labs: Laboratory Tests 07/03 07/03 0640 0600 Chemistry Sodium (137 - 145 mmol/L) 138 Potassium (3.5 - 5.1 mmol/L) 4.0 Chloride (98 - 107 mmol/L) 102 Carbon Dioxide (22 - 30 mmol/L) 24 Anion Gap (5 - 16) 12 BUN (9 - 20 mg/dL) 16 Creatinine (0.7 - 1.2 mg/dL) 1.0 Estimated GFR (>60 ml/min) > 60 BUN/Creatinine Ratio (7 - 25 %) 16.0 Total Bilirubin (0.2 - 1.3 mg/dL) 2.9 H Cancelled Direct Bilirubin (< 0.4 mg/dL) 0.5 H Cancelled AST (17 - 59 U/L) 21 Cancelled ALT (21 - 72 U/L) 30 Cancelled Alkaline Phosphatase (< 127 U/L) 37 Cancelled Total Protein (6.3 - 8.2 g/dL) 6.4 Cancelled Albumin (3.5 - 5.0 g/dL) 3.4 L Cancelled Hematology CBC w Diff NO MAN DIFF REQ Cancelled WBC (4.8 - 10.8 /CUMM) 7.3 Cancelled RBC (4.70 - 6.10 /CUMM) 4.17 L Cancelled Hgb (14.0 - 18.0 G/DL) 12.8 L Cancelled Hct (42 - 52 %) 38.3 L Cancelled MCV (80.0 - 94.0 FL) 91.9 Cancelled MCH (27.0 - 31.0 PG) 30.8 Cancelled RDW (11.5 - 14.5 %) 15.4 H Cancelled Plt Count (130 - 400 /CUMM) 73 L Cancelled MPV (7.4 - 10.4 FL) 8.2 Cancelled Gran % (42.2 - 75.2 %) 73.8 Lymphocytes % (20.5 - 51.1 %) 14.1 L Monocytes % (1.7 - 9.3 %) 9.6 H Eosinophils % (0 - 5 %) 2.2 Basophils % (0.0 - 2.0 %) 0.3 Absolute Granulocytes (1.4 - 6.5 /CUMM) 5.4 Absolute Lymphocytes (1.2 - 3.4 /CUMM) 1.0 L Absolute Monocytes (0.10 - 0.60 /CUMM) 0.7 H Absolute Eosinophils (0.0 - 0.7 /CUMM) 0.2 Absolute Basophils (0.0 - 0.2 /CUMM) 0 PUBS MCHC (33.0 - 37.0 G/DL) 33.5 Cancelled 07/02 07/01 0635 2125 Chemistry Sodium (137 - 145 mmol/L) 138 Potassium (3.5 - 5.1 mmol/L) 4.3 Chloride (98 - 107 mmol/L) 100 Carbon Dioxide (22 - 30 mmol/L) 23 Anion Gap (5 - 16) 15 BUN (9 - 20 mg/dL) 24 H Creatinine (0.7 - 1.2 mg/dL) 1.0 Estimated GFR (>60 ml/min) > 60 BUN/Creatinine Ratio (7 - 25 %) 24.0 Lactic Acid Cancelled Total Bilirubin (0.2 - 1.3 mg/dL) 1.9 H Direct Bilirubin (< 0.4 mg/dL) 0.5 H AST (17 - 59 U/L) 27 ALT (21 - 72 U/L) 43 Alkaline Phosphatase (< 127 U/L) 40 Total Protein (6.3 - 8.2 g/dL) 7.0 Albumin (3.5 - 5.0 g/dL) 4.1 Hematology CBC w Diff NO MAN DIFF REQ WBC (4.8 - 10.8 /CUMM) 8.8 RBC (4.70 - 6.10 /CUMM) 4.55 L Hgb (14.0 - 18.0 G/DL) 14.0 Hct (42 - 52 %) 41.3 L MCV (80.0 - 94.0 FL) 91.0 MCH (27.0 - 31.0 PG) 30.9 RDW (11.5 - 14.5 %) 15.7 H Plt Count (130 - 400 /CUMM) 81 L MPV (7.4 - 10.4 FL) 8.8 Gran % (42.2 - 75.2 %) 79.9 H Lymphocytes % (20.5 - 51.1 %) 8.9 L Monocytes % (1.7 - 9.3 %) 10.2 H Eosinophils % (0 - 5 %) 0.8 Basophils % (0.0 - 2.0 %) 0.2 Absolute Granulocytes (1.4 - 6.5 /CUMM) 7.0 H Absolute Lymphocytes (1.2 - 3.4 /CUMM) 0.8 L Absolute Monocytes (0.10 - 0.60 /CUMM) 0.9 H Absolute Eosinophils (0.0 - 0.7 /CUMM) 0.1 Absolute Basophils (0.0 - 0.2 /CUMM) 0 PUBS MCHC (33.0 - 37.0 G/DL) 34.0 07/01 1832 Chemistry Sodium (137 - 145 mmol/L) 141 Potassium (3.5 - 5.1 mmol/L) 3.9 Chloride (98 - 107 mmol/L) 103 Carbon Dioxide (22 - 30 mmol/L) 24 Anion Gap (5 - 16) 13 BUN (9 - 20 mg/dL) 24 H Creatinine (0.7 - 1.2 mg/dL) 1.2 Estimated GFR (>60 ml/min) 59 L BUN/Creatinine Ratio (7 - 25 %) 20.0 Glucose (65 - 99 mg/dL) 112 H Lactic Acid (0.7 - 2.1 mmol/L) 1.9 Calcium (8.4 - 10.2 mg/dL) 9.4 Total Bilirubin (0.2 - 1.3 mg/dL) 1.4 H AST (17 - 59 U/L) 33 ALT (21 - 72 U/L) 46 Alkaline Phosphatase (< 127 U/L) 44 Troponin I (<0.11 ng/ml) 0.02 Total Protein (6.3 - 8.2 g/dL) 7.4 Albumin (3.5 - 5.0 g/dL) 4.3 Globulin (1.9 - 4.2 gm/dL) 3.1 Albumin/Globulin Ratio (1.1 - 2.2 %) 1.4 Lipase (23 - 300 U/L) 89 Coagulation PT (9.4 - 12.5 SEC) 12.2 INR (0.90 - 1.17) 1.16 APTT (25 - 37 SEC) 32 Hematology CBC w Diff NO MAN DIFF REQ WBC (4.8 - 10.8 /CUMM) 6.6 RBC (4.70 - 6.10 /CUMM) 4.57 L Hgb (14.0 - 18.0 G/DL) 13.9 L Hct (42 - 52 %) 41.6 L MCV (80.0 - 94.0 FL) 91.0 MCH (27.0 - 31.0 PG) 30.5 RDW (11.5 - 14.5 %) 15.7 H Plt Count (130 - 400 /CUMM) 91 L MPV (7.4 - 10.4 FL) 8.7 Gran % (42.2 - 75.2 %) 68.1 Lymphocytes % (20.5 - 51.1 %) 19.9 L Monocytes % (1.7 - 9.3 %) 8.5 Eosinophils % (0 - 5 %) 2.6 Basophils % (0.0 - 2.0 %) 0.9 Absolute Granulocytes (1.4 - 6.5 /CUMM) 4.5 Absolute Lymphocytes (1.2 - 3.4 /CUMM) 1.3 Absolute Monocytes (0.10 - 0.60 /CUMM) 0.6 Absolute Eosinophils (0.0 - 0.7 /CUMM) 0.2 Absolute Basophils (0.0 - 0.2 /CUMM) 0.1 PUBS MCHC (33.0 - 37.0 G/DL) 33.5 Assessment/Plan Assessment/Plan 76yo M POD#0 s/p lap tristin. AVSS, patient stable. - Pain control - IVF - PRN zofran - I/O's - sc heparin and ALPS for DVT PPX - Unasyn x2 doses post op - Advance diet as tolerated - f/u a.m. labs - dc home tomorrow if LFTs stable and bilirubin improved Core Measures/Miscellaneous Venous Thromboembolism VTE Risk Factors: Age > 40 VTE Contraindications: No Contraindications VTE Prophylaxis Ordered Inpt Mech & Pharm VTE Diagnosis: No VTE Type: NONE VTE Confirmed by (Test): NONE Beta Jorge Is Beta Jorge a Home Med? No Antibiotics Is Patient on Antibiotics? Yes If Yes: infection
[2016-07-03 20:37] VITALS: BP 124/70
[2016-07-03 23:53] VITALS: BP 140/78
[2016-07-04 05:13] VITALS: BP 130/70
--- NOTE | 2016-07-04 07:15 | PN- General Surgery ---
Subjective Subjective: POD#1 S/P LAP GROVER, FOR CHOLEDOCOLITHIASIS/CHOLECYSTITIS MILD PAIN THIS AM CONTROLLED WITH PO PAIN MEDS DENIES CP, SOB, NO N+V WITH REGULAR DIET +FLATUS, NO BM Objective Vital Signs and I&Os Vital Signs Date Time Temp Pulse Resp B/P Pulse O2 O2 Flow FiO2 Ox Delivery Rate 07/04 05 98.6 72 20 130/70 96 Room Air 07/03 2353 98.5 79 20 140/78 96 Room Air 07/03 2037 98.8 77 20 124/70 96 Room Air 07/03 1600 98.6 72 20 130/68 97 Room Air 07/03 0724 98.8 69 20 120/60 97 Room Air Intake & Output 07/04 0800 07/04 0000 07/03 1600 07/03 0800 07/03 0000 07/02 1600 Intake Total 120 400 740 850 Output Total 1050 700 Balance -1050 120 -300 740 850 Intake, IV 120 400 500 800 Intake, Oral 0 240 50 Number 0 Bowel Movements Output, Urine 1050 700 Physical Exam: CV: RRR LUNGS: CLEAR ABD: SOFT, FLAT TENDER TO EPIGASTRIC PALP +BS WOUNDS CD/I EXT: WARM, DISTAL CMS INTACT Assessment/Plan Assessment/Plan SURGICAL STABLE PLAN F/U AM LABS OOB /AMBULATE IF AM LABS OK MAY D/C HOME THIS AFTERNOON Core Measures/Miscellaneous Venous Thromboembolism VTE Risk Factors: Age > 40 VTE Contraindications: No Contraindications VTE Prophylaxis Ordered Inpt Mech & Pharm VTE Diagnosis: No VTE Type: NONE VTE Confirmed by (Test): NONE Beta Jorge Is Beta Jorge a Home Med? No Antibiotics Is Patient on Antibiotics? Yes If Yes: infection
[2016-07-04 09:54] LABS: ABSOLUTE BASOPHIL COUNT 0 /CUMM (0.0-0.2); ABSOLUTE EOSINOPHIL COUNT 0.2 /CUMM (0.0-0.7); ABSOLUTE GRANULOCYTE CT 4.1 /CUMM (1.4-6.5); ABSOLUTE MONOCYTE COUNT 0.4 /CUMM (0.10-0.60); BASOPHIL % 0.5 % (0.0-2.0); EOSINOPHIL % 3.4 % (0-5); GRANULOCYTE % 71.2 % (42.2-75.2); HEMATOCRIT 36.2 % (42-52); MEAN CORPUSCULAR HGB 30.5 PG (27.0-31.0); MEAN CORPUSCULAR HGB CONC 33.3 G/DL (33.0-37.0); MEAN CORPUSCULAR VOLUME 91.5 FL (80.0-94.0); PLATELET COUNT 78 /CUMM (130-400); RBC DISTRIBUTION WIDTH 15.6 % (11.5-14.5); RED BLOOD CELL CT 3.96 /CUMM (4.70-6.10); WHITE BLOOD CELL COUNT 5.7 /CUMM (4.8-10.8)
--- NOTE | 2016-07-04 13:00 | Discharge Summary ---
Visit Information Visit Dates Admission Date: 07/01/16 Discharge Date: 07/04/16 Hospital Course Course Attending Physician: ROSIBEL KLEIN,DAVID Osorio Primary Care Physician: HENRY ROMANO MD Hospital Course: admitted with cholecystitis, possibly stone in duct, rechecked interval LFTs, bili up but no pain, to OR yesterday, gangrenous, better today, bili down, some discomfort like preop though, no nausea, will check EKG, if OK prob dc home. Allergies: Coded Allergies: MDX - DT (diphtheria toxoid - tetan (From TETANUS AND DIPHTHERIA TOXOIDS A...) ( Intermediate, [facility] 07/20/14) MDX - ETug-SbyO-DGC (Pediarix) (From TETANUS AND DIPHTHERIA TOXOIDS A...) ( [facility], [facility] 07/20/14) MDX - DTap-IPV (Kinrix) (From TETANUS AND DIPHTHERIA TOXOIDS A...) ([facility] , [facility] 07/20/14) MDX - DTap-IPV/Hib (Pentacel) (From TETANUS AND DIPHTHERIA TOXOIDS A...) ( [facility], [facility] 07/20/14) MDX - DTap/Hib (TriHIBit) (From TETANUS AND DIPHTHERIA TOXOIDS A...) ( [facility], [facility] 07/20/14) MDX - Diphtheria Toxoid, Adsorbed (From TETANUS AND DIPHTHERIA TOXOIDS A...) ( [facility], [facility] 07/20/14) MDX - Dtap (Daptacel, Infanrix, Tri (From TETANUS AND DIPHTHERIA TOXOIDS A...) ( [facility], [facility] 07/20/14) MDX - Td (Decavac) (From TETANUS AND DIPHTHERIA TOXOIDS A...) ([facility], [facility] 07/20/14) MDX - Tdap (Boostrix, Adacel) (From TETANUS AND DIPHTHERIA TOXOIDS A...) ( [facility], [facility] 07/20/14) MDX - Tetanus Toxoid (From TETANUS AND DIPHTHERIA TOXOIDS A...) ([facility], [facility] 07/20/14) Disposition Summary Disposition Principal Diagnosis: cholecystitis Additional Diagnosis: trisomy 8 Discharge Disposition: home or self care Discharge Instructions General Discharge Information Code Status: Full Code Patient's Diet: resume Patient's Activity: av strainig Follow-Up Instructions/Appts: next week unless recurent sympts and fever, ie retained stone Medications at Discharge Discharge Medications: Continue taking these medications: Esomeprazole (Nexium) 40 MG CAPSULE.DR 1 Capsule ORAL DAILY Start taking the following new medications: Oxycodone HCl/Acetaminophen (Percocet 5-325 MG Tablet) 5 MG-325 MG TABLET 1-2 Tablet ORAL EVERY 4-6 HOURS as needed for PAIN Qty = 24 No Refills Comments: Last Taken:07/04/16 Time:1030AM Copies To: ROSIBEL KLEIN,DAVID Osorio
== END 2016-07-04 13:15 | DRG 419 ==
LOC: ERH 18:22 → ERHI 22:31 → 2NA 22:31
PROVIDERS: Emergency Medicine; Physician Assistant; Physician Assistant Surgical; ADMIT Surgery
PROC: 0FT44ZZ Resection of Gallbladder, Percutaneous Endoscopic Approach (ICD-10-PCS; principal; 2016-07-03)
DX: K80.21 Calculus of gallbladder without cholecystitis with obstruction (principal); K21.9 Gastro-esophageal reflux disease without esophagitis; K80.00 Calculus of gallbladder with acute cholecystitis without obstruction; Q92.8 Other specified trisomies and partial trisomies of autosomes; K44.9 Diaphragmatic hernia without obstruction or gangrene
CPT/HCPCS: 2NASP; ERO; 36415; 74174; 82436; 88304; 90732; 93005; 93010; 96374; 96375; 96376; J0131; J1644; J2405; J7042; S5012